=== PATIENT | male | born 1955 | race Caucasian/White ===

== ENCOUNTER 2017-05-23 13:03 | Emergency (ER) | payer BC ==
[~2017-05-23] VITALS: Ht 182.9 cm; Wt 115.7 kg
[~2017-05-23 13:03] MED LIST: ANT25 PO
[2017-05-23 13:17] VITALS: TEMP 36.8; Ht 182.9 cm; Wt 115.7 kg
[2017-05-23] MEDS ORDERED: DEXAMETHASONE SOD INJ 4 MG/ML VIAL IM STA (13:32)
[2017-05-23] MEDS ORDERED: TRAMADOL HCL 50 MG TAB PO STA (13:32)
--- NOTE | 2017-05-23 13:36 | EMERGENCY ROOM VISIT NOTE ---
History First contact with patient: 13:22 Chief Complaint: BACK PAIN Stated Complaint: BACK PAIN, HARD TO STAND/WALK History of Present Illness The patient is a 62 year old male who presents to the Emergency Room with complaints of lower back pain down his legs bilaterally that has gotten progressively worse over the last 2 days. The patient denies any injury. He does have a history of a lumbar spinal fusion approximately 20 years ago. He denies any weakness. The pain is worse with standing. He denies any urinary or bowel incontinence. No saddle paresthesias. He has tried Tylenol and ibuprofen with minimal relief of the pain. Review of Systems 10 system review performed and negative unless noted in HPI or below Past Medical/Surgical History Status post spinal fusion, status post cholecystectomy Family History Cancer Social History Smoking Status: Former Smoker Marital Status: Housing Status: lives with significant other Occupation Status: employed Current/Historical Medications Scheduled Acetaminophen Tab (Tylenol), 650 MG PO Q4 Cyclobenzaprine Hcl (Flexeril), 10 MG PO TID Ibuprofen (Advil), 400 MG PO Q6 Methylprednisolone (Medrol Dosepak), 0 PO DAILY Scheduled PRN Tramadol (Ultram), 1-2 TAB PO Q4H PRN for Pain Physical Exam Vital Signs Date Time Temp Pulse Resp B/P (MAP) Pulse Ox O2 Delivery O2 Flow Rate FiO2 05/23/17 14:50 58 18 121/70 96 Room Air 05/23/17 13:17 36.8 76 20 142/86 95 Room Air Physical Exam VITALS: Vitals are noted on the nurse's note and reviewed by myself. Vital signs stable. GENERAL: 62-year-old male, in no acute distress, nondiaphoretic, well-developed well-nourished. SKIN: The skin was without rashes, erythema, edema, or bruising. HEAD: Normocephalic atraumatic. NECK: . Cervical spine is nontender. No JVD. HEART: Regular rate and rhythm without murmurs gallops or rubs. LUNGS: Clear to auscultation bilaterally without wheezes, rales or rhonchi. No accessory muscle use. MUSCULOSKELETAL: No tenderness noted over the lumbar spinous processes or SI joint bilaterally. No muscle atrophy, erythema, or edema noted. . Strength 5/ 5 throughout. NEURO: Patient was alert and oriented to person place and time. Normal sensation to touch. No focal neurological deficits. Medical Decision & Procedures ER Provider Diagnostic Interpretation: lumbar xrays FINDINGS: There is no pathologic bowel dilatation. There are surgical clips in the right upper quadrant consistent with a prior cholecystectomy. There are moderately advanced multilevel degenerative changes most pronounced the L4-5 level. There is narrowing of the AP diameter of the spinal canal and underlying spinal stenosis most be considered. There is moderate facet joint arthropathy. No acute fractures are evident. IMPRESSION: 1. Moderately advanced multilevel degenerative change 2. No acute fractures 3. Narrowing of the AP diameter spinal canal. Underlying spinal stenosis most be considered. Cross-sectional imaging might be considered in follow-up for further evaluation Medications Administered Medications (Trade) Dose Ordered Sig/Katerin Route Start Time Stop Time Status Last Admin Dose Admin Ketorolac Tromethamine (Toradol Inj) 60 mg ONE ONCE IM 05/23/17 13:45 05/23/17 13:46 DC 05/23/17 13:43 60 MG Tramadol HCl (Ultram Tab) 50 mg ONE STAT PO 05/23/17 13:32 05/23/17 13:35 DC 05/23/17 13:43 50 MG Dexamethasone Sodium Phosphate (Decadron Inj) 10 mg NOW STAT IM 05/23/17 13:32 05/23/17 13:35 DC 05/23/17 13:43 10 MG ED Course The patient was seen and examined He was given Toradol 60 mg and Decadron 10 mg IM. He was given Ultram 50 mg by mouth. Imaging was performed and reviewed Medical Decision Differential diagnosis: Spine fracture, ligamentous injury, subluxation, spondylolisthesis, spondylosis, herniated disc, contusion, muscle spasm This patient is a 62-year-old male presents to the emergency department with low back pain down his legs. No history of trauma. No neurologic symptoms. X- rays did reveal multilevel degenerative changes in addition to spinal stenosis. Since the patient was neurovascularly intact, I did not find an MRI emergent. He had good pain relief in the emergency department. He was put on steroids, a muscle relaxant and Ultram for pain. He was given a follow-up appointment with Dr. Lyon. He was counseled on warning signs of cauda equina syndrome, for which she agrees to return to the emergency department immediately. This chart was completed in part utilizing [employer] Speech Voice Recognition software. Attempts were made to minimize the grammatical errors, random word insertions, pronoun errors and incomplete sentences. Any formal questions or concerns about the content, text or information contained within the body of this dictation should be directly addressed to the provider for clarification. Medication Reconcilliation Current Medication List: was personally reviewed by me Blood Pressure Screening Patient's blood pressure: Normal blood pressure Impression Primary Impression: Lumbar back pain Departure Information Dispostion Home / Self-Care Condition GOOD Prescriptions Methylprednisolone (MEDROL DOSEPAK) 4 Mg Felipe 0 PO DAILY, #1 PKT Prov: Charissa Cobian PA-C 05/23/17 Tramadol (Ultram) 50 Mg Tab 1-2 TAB PO Q4H Y for Pain, #30 TAB For Initial Treatment Prov: Charissa Cobian PA-C 05/23/17 Cyclobenzaprine Hcl (FLEXERIL) 10 Mg Tab 10 MG PO TID for Muscle Spasms, #30 TAB Prov: Charissa Cobian PA-C 05/23/17 Referrals Atilio Artis M.D. (PCP) Sanjiv Lyon, DO Patient Instructions My [facility] Additional Instructions Tylenol and ibuprofen for pain Ibuprofen 800 mg and/or Tylenol 1000 mg every 8 hours. You may also alternate these medications for more effective pain relief: Ibuprofen --4 HRS--> Tylenol --4 HRS--> ibuprofen --4 HRS--> Tylenol .... Tramadol for severe pain Tramadol 50 mg: Take 1-2 pills every four hours as needed. This may be taken with both Tylenol and ibuprofen. Please finish the entire course of steroids. Flexeril every 8 hours as needed for muscle spasms. Please do not drink alcohol or drive or taking this medication. Ice over the lower back over the next 48 hours. Lying on a hard surface may help with the pain. No strenuous activity until your back is feeling better Return to the emergency department if you have any of the following symptoms: -Problems with urination -Weakness in your legs -Chest pain -Shortness of breath -Worsening pain Please follow-up with Dr. Lyon, the spine surgeon, as scheduled. Please also follow up with your primary care physician within the next week for a recheck.
[2017-05-23] MEDS ORDERED: ACET325T96 PO (13:38)
[2017-05-23] MEDS ORDERED: IBUP-1050 PO (13:38)
[2017-05-23] MEDS ORDERED: KETOROLAC TROMETHAMINE 60 MG/2 ML VIAL IM ONE (13:45)
--- NOTE | 2017-05-23 13:59 | DIAGNOSTIC IMAGING REPORT ---
L-SPINE MIN 4 VIEWS ROUTINE CLINICAL HISTORY: back pain down L>R leg hx fusion 20 years ago COMPARISON STUDY: No previous studies for comparison. FINDINGS: There is no pathologic bowel dilatation. There are surgical clips in the right upper quadrant consistent with a prior cholecystectomy. There are moderately advanced multilevel degenerative changes most pronounced the L4-5 level. There is narrowing of the AP diameter of the spinal canal and underlying spinal stenosis most be considered. There is moderate facet joint arthropathy. No acute fractures are evident. IMPRESSION: 1. Moderately advanced multilevel degenerative change 2. No acute fractures 3. Narrowing of the AP diameter spinal canal. Underlying spinal stenosis most be considered. Cross-sectional imaging might be considered in follow-up for further evaluation Electronically signed by: Marty Rao M.D. 05/23/2017 1:58 PM Dictated Date/Time: 05/23/2017 1:57 PM
[2017-05-23] MEDS ORDERED: METH4PAK PO (14:45)
[2017-05-23] MEDS ORDERED: TRAM-10 PO (14:45)
[2017-05-23] MEDS ORDERED: CYCL10TA6 PO (14:45)
[2017-05-23 14:50] VITALS: BP 121/70; PULSE 58; O2SAT 96
== END 2017-05-23 14:59 | disposition home or self-care (01) ==
LOC: C.EDB 13:04 → C.EDD 14:59
DX: M54.5 Low back pain (principal); Z79.899 Other long term (current) drug therapy; Z87.891 Personal history of nicotine dependence; Z98.1 Arthrodesis status